=== PATIENT | female | born 1980 | race Caucasian/White ===

== ENCOUNTER 2019-01-31 17:49 | Emergency (ER) | payer SELFPAY ==
--- NOTE | 2019-01-31 18:51 | ED Physician Documentation ---
General Adult - HISTORIAN Historian: patient - HPI Chief Complaint: General Adult Additional Information: 4-5 day history of increasing swelling and tenderness to the right breast. Patient has not had any nipple drainage, she is not breast feeding at this time, no previous problems. She has not had any insect bite that she is aware of. No fever or chills noted. No history of trauma. Onset: days ago (5 days ago) Timing: still present Severity: moderate - ROS CONST: no problems. denies: fever, chills - PAST HX Past History: none Other History: none Surgeries/Procedures: other (salpingectomy relasted to tubal ) Immunizations: referred to PCP Allergies/Adverse Reactions: Allergies Allergy/AdvReac Type Severity Reaction Status Date / Time No Known Allergies Allergy Verified 01/31/19 18:50 Home Medications: Ambulatory Orders Medication Instructions Recorded Cephalexin [Keflex] 500 mg PO TID #30 capsule 01/31/19 - SOCIAL HX Smoking History: less than 1 pack/day (3/4 ppd) Alcohol Use: none Drug Use: none - FAMILY HX Family History: No - REVIEWED ASSESSMENTS Nursing Assessment Reviewed: Yes Vitals Reviewed: Yes General Adult Physical Exam - PHYSICAL EXAM GENERAL APPEARANCE: mild distress NECK: normal inspection, thyroid normal, supple. No: lymphadenopathy RESPIRATORY: no resp distress, chest non-tender, breath sounds normal CVS: reg rate & rhythm, heart sounds normal, equal pulses, no murmur SKIN: warm/dry, other (7x5.5cm area in the RLQ are of the breast with induration of the breast tissue. No open wound or punture wounds noted. ) NEURO: oriented X3, CN's nml as tested Discharge Clincal Impression: Mastitis Prescriptions: Cephalexin [Keflex] 500 mg PO TID #30 capsule Referrals: Primary Doctor,No [Primary Care Provider] - 2 Days Additional Instructions: Take Cephalexin 500mg three times a day. Use a warm compress to the area. If symptoms get worse to follow-up with your primary care provider or return to the ED. If you develop a fever you need to return to the ED. Take ibuprofen or acetaminophen as needed for pain. Condition: Stable Disposition: 01 HOME, SELF-CARE Decision to Admit: NO Date of Decison to Admit: 01/31/19 Decision Time: 18:52
[2019-01-31 18:57] VITALS: BP 114/71
[2019-01-31] MEDS: CEPHALEXIN 250 MG CAPSULE PO ONE (19:03)
== END 2019-01-31 19:06 | disposition home or self-care (01) ==
LOC: ED 17:49
DX: N61.0 Mastitis without abscess (principal)
CPT/HCPCS: 99282